=== PATIENT | male | born 1945 | race African-American/Black ===

== ENCOUNTER 2016-08-08 09:10 | Outpatient (CLI) | payer MEDICARE, MEDICAID ==
[2016-08-08 12:35] LABS: #Basophils 0.1 thou/uL (0.0-0.2); #Eosinphils 0.1 thou/uL (0.0-0.7); #Monocytes 0.6 thou/uL (0.11-0.59); #Neutrophils 4.4 thou/uL (1.40-6.50); %Basophils 1.1 % (0.0-1.0); %Eosinophils 0.9 % (0.0-10.0); %Lymphocytes 36.6 % (21.0-51.0); %Monocytes 7.6 % (0.0-10.0); Hematocrit 41.3 % (42.0-52.0); Mean Platelet Volume 7.8 fL (7.4-10.4); Red Blood Cell (RBC) Count 4.48 mill/uL (4.70-6.10); White Blood Cell (WBC) Count 8.1 thou/uL (4.8-10.8)
== END 2016-08-08 09:11 ==
LOC: NAVSJIPCSP 09:10
PROVIDERS: ATTEND Internal Medicine
DX: Z51.81 Encounter for therapeutic drug level monitoring (principal); Z79.899 Other long term (current) drug therapy
CPT/HCPCS: 36415; 80061; 85025

== ENCOUNTER 2016-10-03 08:42 | Outpatient (CLI) | payer MEDICARE, MEDICAID ==
--- NOTE | 2016-10-03 10:52 | ULT ---
ULTRASOUND ABDOMINAL AORTA: Date: 10/03/16 HISTORY: Screening for abdominal aortic aneurysm. FINDINGS: The proximal abdominal aorta measures 2.2 x 2.2 x 2.1 cm, mid measures 1.8 x 2.2 x 2.0 cm, and dista l measures 1.8 x 1.8 x 1.7 cm. IMPRESSION: No evidence of abdominal aortic aneurysm. POS: [facility]
== END 2016-10-03 08:43 | disposition home or self-care (01) ==
LOC: NAV ULT 08:42
PROVIDERS: ATTEND Internal Medicine
DX: Z13.6 Encounter for screening for cardiovascular disorders (principal)
CPT/HCPCS: 76775

== ENCOUNTER 2016-11-07 08:56 | Outpatient (CLI) | payer MEDICARE, MEDICAID ==
[2016-11-07 12:31] LABS: Cardiac Risk 1.8 (Less than 4.5)
== END 2016-11-07 08:57 | disposition home or self-care (01) ==
LOC: NAVSJIPCSP 08:56
PROVIDERS: ATTEND Internal Medicine
DX: Z51.81 Encounter for therapeutic drug level monitoring (principal); Z79.899 Other long term (current) drug therapy
CPT/HCPCS: 36415; 80061